=== PATIENT | male | born 1930 | race Caucasian/White ===

== ENCOUNTER → 2017-01-03 | Outpatient (CLI) | payer MEDICARE, OTHER ==
[~2017-01-03] MED LIST: AMLODIPINE BESY10 MG PO; FOLIC ACID 40400 MCG PO; IRON325 M1 PO; LIPITOR 10MG10 MG PO; OMEPRAZOLE40 MG PO; VITAMIN C BUFF500 MG PO
== END ==
LOC: COL.RAD 07:25
DX: N28.89 Other specified disorders of kidney and ureter (principal); N32.89 Other specified disorders of bladder; N28.1 Cyst of kidney, acquired

== ENCOUNTER → 2021-04-20 | Outpatient (CLI) | payer MEDICARE, OTHER | LOC: COL.RAD 13:08 | DX: N20.0 Calculus of kidney (principal); N28.1 Cyst of kidney, acquired ==